=== PATIENT | male | born 1965 | race Asian ===

== ENCOUNTER 2017-03-29 08:26 | Outpatient (CLI) | payer BC ==
--- NOTE | 2017-03-29 10:24 | CT ---
CT ABDOMEN WITH AND WITHOUT IV CONTRAST CT PELVIS WITH AND WITHOUT IV CONTRAST: Date: 03-29-17 History: Right sided abdominal pain and hematuria. History of bilateral renal stones. Comparison: Noncontrast CT abdomen and pelvis, 01-23-12. FINDINGS: There are two nonobstructing right renal calculi, each of which measures approximately 4 mm. There i s an approximately 5 mm calculus seen within the mid right ureter near the level of the inferior asp ect right sacroiliac joint. There is no resultant hydroureter or hydronephrosis on the right. No lef t hydronephrosis is present. There is decreased attenuation of the liver suggesting diffuse fatty infiltration. There is bibasilar atelectasis. The spleen, pancreas, bilateral adrenal glands, and urinary bladder demonstrate a normal CT appearan ce. Minimal vascular calcifications seen in the abdominal aorta and iliac arteries. The upper abdomen including the upper portion of the kidneys is excluded from view on the arterial p hase imaging which is secondary to technical factures. However, on delayed imaging, the kidneys demo nstrate a normal CT appearance and no renal mass is visualized. The appendix is visualized and normal in caliber. No other interval change. The partially obstructing proximal right ureter calculus from 2012 is not seen. IMPRESSION: 1. Mid right ureteral calculus measuring approximately 5 mm. There is no resultant hydronephrosis or hydroureter. 2. Nonobstructing right renal calculi. 3. Fatty infiltration of the liver. POS: [facility]
[2017-03-29] MEDS ORDERED: Iopamidol 370 76% 100 ML VIAL ONE (15:50)
== END 2017-03-29 08:27 | disposition home or self-care (01) ==
LOC: CT 08:26
PROVIDERS: ATTEND Urology
DX: R31.29 Other microscopic hematuria (principal); N20.0 Calculus of kidney; N20.1 Calculus of ureter; K76.0 Fatty (change of) liver, not elsewhere classified
CPT/HCPCS: 74178

== ENCOUNTER 2017-04-12 06:00 | Day surgery (SDC) | payer BC ==
[2017-04-06 16:38] VITALS: BMI 27.6
[2017-04-12] MEDS ORDERED: Fentanyl 250 MCG/5 ML VIAL ONE (06:59)
[2017-04-12] MEDS ORDERED: Midazolam HCl 2 mg/2 ml Vial ONE ×2 (06:59→07:15)
[2017-04-12] MEDS ORDERED: Promethazine HCl 25 MG/ML VIAL ONE (06:59)
[2017-04-12] MEDS ORDERED: CEFAZOLIN 1 GM, Syringe 2.5 ML in Sterile Water 7.5 ML SLOW IVP SCH (07:15)
[2017-04-12] MEDS ORDERED: Iothalamate Meglumine 60% 50 ML VIAL FS ONE (07:17)
[2017-04-12] MEDS ORDERED: Propofol 200 MG/20 ML VIAL ONE ×2 (07:38→08:22)
[2017-04-12] MEDS ORDERED: PHENYLEPHRINE-NS 100 MCG/ML 10 ML SYRINGE ONE ×2 (07:38→08:22)
[2017-04-12] MEDS ORDERED: Ondansetron HCl/PF 4 MG/2 ML Vial ONE (07:38)
[2017-04-12] MEDS ORDERED: Dexamethasone 20 MG/5 ML VIAL ONE (08:22)
[2017-04-12] MEDS ORDERED: Glycopyrrolate 0.2 MG/ML 5 ML SYRINGE ONE (08:22)
[2017-04-12] MEDS ORDERED: Furosemide 20 MG/2 ML VIAL ONE (08:57)
--- NOTE | 2017-04-12 09:18 | RAD ---
KUB: Date: 04-12-17 Comparison: 10-29-14 History: Pre-operative patient, history of renal stone disease. FINDINGS: Multiple punctate calcifications are seen in the right upper quadrant, overlying the region of the r ight renal shadow near the 12th rib. These punctate calcifications measure up to 3 mm and are slight ly obscured by stool within the adjacent colon. There are at least two such stones suspected. There is a calcification just lateral to the right L2 transverse process which correlates with a vas cular calcification on the 03-29-17 CT exam. The 03-29-17 CT exam demonstrated a 4 mm calcification along the course of the distal right ureter, difficult to visualized on radiograph secondary to overlying the sacrum. There may be a correlate on this KUB overlying the inferior aspect of the right sacral ala measuring up to 3 mm in craniocaudal dimension. This determination could be made with repeat CT or retrograde pyelogram. IMPRESSION: Calcifications in the right upper quadrant suggest punctate intrarenal stones. There is a faint calc ification along the inferior aspect of the right sacroiliac joint overlying the sacrum which may rep resent a small stone within the distal right ureter. POS: [facility]
[2017-04-12] MEDS ORDERED: Phenazopyridine HCl 97.5 MG TABLET ONE (09:48)
[2017-04-12] MEDS ORDERED: Oxybutynin 5 MG TAB ONE (09:49)
--- NOTE | 2017-04-12 14:16 | OP ---
DATE OF SERVICE: 04/12/2017 PREOPERATIVE DIAGNOSIS: Right ureteral and renal stones. POSTOPERATIVE DIAGNOSIS: Right ureteral and renal stones. PROCEDURES: Cystoscopy, right retrograde pyelogram, right ureteroscopy, holmium laser lithotripsy, stone basketing, stent placement 6 x 24 as well as right extracorporal shock wave lithotripsy. SURGEON: Tiffanie Quinonez MD ANESTHESIA: General with ET tube. FINDINGS: Adequate fragmentation and removal of the ureteral stone and adequate fragmentation of 2 renal stones. SPECIMEN: Stone. COMPLICATIONS: None. BLOOD LOSS: None. DRAINS: Remaining with internal double-J 6 x 24 with a string. INDICATIONS: The patient is a 52-year-old male who was seen in the office after having a bout of re nal colic and noted to have a persistent mid right ureteral stone as well as 2 others in the right k idney, so he is set up for definitive stone therapy. TECHNIQUE: The patient was brought to the room by Anesthesia, lying on the table in supine position . After receiving general anesthetic, his legs were placed in lithotomy position and his perineum w as prepped and draped in sterile fashion. Using a 22-Turkish cystoscope and a 30 degree lens, the ur ethra was traversed and the bladder inspected. The prostate was slightly oozy, but otherwise there were no abnormalities noted. The right ureteral orifice was intubated with a Pollack catheter and a retrograde pyelogram was attempted, but I needed the wire in order to intubate the UO successfully, so this was advanced beyond the stone and up into the renal pelvis as well as the Pollack catheter over the wire. Then, the wire was removed. There was no hydronephrotic drip. There was no hydrone phrosis and there was minimal to no specimen of urine collected. So at this point, measurements wer e taken for a 6 x 24 which would be used at the end of the case, then the wire was replaced and the ureteral orifice was dilated with 12 Turkish 6 cm to a maximum pressure of 12 mmHg and this was taken down and removed. Then, a rigid ureteroscope was used to go up to the level of the stone and laser fiber with holmium was used to fragment the stone into 3 main pieces which were extracted and small er pieces which were also extracted and dropped into the bladder and rinsed out. On the last pass, there were no further fragments of concern. So, the ureteroscope was removed and the cystoscope vilma k fed over the wire and a 6 x 24 double-J was placed with a coil extended somewhat on the lower pole because the renal pelvis had no significant distention. So, I opted to leave this. There was a go od coil visualized in the bladder itself. The scope was broken apart and bladder was drained carefu lly and removed leaving the string intact, which was then secured to the patient's penis. The patie nt tolerated procedure well and was then transferred to a second suite where ESWL would be performed . The patient was laid supine and an ESWL machine was brought up to his right side where a total of 25 00 shocks at a maximum power of 4 out of 6 at a maximum rate of 90 per minute were then delivered eq isma distributing between approximately 1250 shocks to the right 5 mm mid pole and the right upper 5 mm stone. Good fragmentation was noted. The patient tolerated the procedure well and then was aw akened and transferred to PACU in stable condition.
[2017-04-15 15:22] LABS: CA Oxalate Dihydrate 10 % (.); CA Oxalate Monohydrate 87 % (.); Color Brown (.)
== END 2017-04-12 11:55 | disposition home or self-care (01) ==
LOC: SDC 06:00
PROVIDERS: ATTEND Urology
PROC: 0T768DZ Dilation of Right Ureter with Intraluminal Device, Via Natural or Artificial Opening Endoscopic (ICD-10-PCS; principal; 2017-04-12)
PROC: 0TF3XZZ Fragmentation in Right Kidney Pelvis, External Approach (ICD-10-PCS; principal; 2017-04-12)
PROC: 0TF38ZZ Fragmentation in Right Kidney Pelvis, Via Natural or Artificial Opening Endoscopic (ICD-10-PCS; principal; 2017-04-12)
DX: N20.2 Calculus of kidney with calculus of ureter (principal)
CPT/HCPCS: 74000; 76000; 82365; 88300; A4216; C1758; J0131; J0690; J1100; J1940; J2250; J2405; J2550; J2704; J3010; Q9961

== ENCOUNTER 2017-04-28 12:20 | Outpatient (CLI) | payer OTHER | END 2017-04-28 12:21 | disposition home or self-care (01) | LOC: DTY/OP 12:20 | PROVIDERS: ATTEND Family Medicine | DX: E11.9 Type 2 diabetes mellitus without complications (principal) | CPT/HCPCS: 97802 ==

== ENCOUNTER 2017-05-11 12:38 | Outpatient (CLI) | payer BC ==
--- NOTE | 2017-05-11 12:56 | RAD ---
KUB: Indication: Renal stone. Comparison: 04-12-17, CT of the abdomen and pelvis, 03-29-17. FINDINGS: Multiple stones overlying the right renal collecting system are similar appearing. The small calcific ations seen overlying the right sacral ala is no longer present and may reflect a passed stone. Artif act slightly limits evaluation of the lower pelvis. Bowel gas pattern is nonobstructed. No acute osse ous abnormality is evident. IMPRESSION: Stable right nephrolithiasis. POS: [facility]
== END 2017-05-11 12:39 | disposition home or self-care (01) ==
LOC: RAD 12:38
PROVIDERS: ATTEND Urology
DX: N20.0 Calculus of kidney (principal)
CPT/HCPCS: 74000

== ENCOUNTER 2018-05-16 12:41 | Outpatient (CLI) | payer BC ==
--- NOTE | 2018-05-16 14:33 | RAD ---
ABDOMEN 1 VIEW: Date: 05/16/18 HISTORY: Other abnormal findings in urine; history of stones. COMPARISON: Radiograph dated 05/11/17. FINDINGS: The right-sided renal calculus measures approximately 7.0 mm, similar to slightly increased in size f rom the comparison examination. No abnormal calcifications are seen projecting over the left renal sh adow. Small acetabular osteophytes bilaterally. Small phleboliths in the pelvis. IMPRESSION: Similar right-sided nephrolithiasis. POS: [facility]
== END 2018-05-16 12:42 | disposition home or self-care (01) ==
LOC: RAD 12:41
PROVIDERS: ATTEND Urology
DX: R82.998 Other abnormal findings in urine (principal); N20.0 Calculus of kidney
CPT/HCPCS: 74018

== ENCOUNTER 2024-03-07 10:09 | Outpatient (CLI) | payer BC | END 2024-03-07 10:10 | disposition home or self-care (01) | LOC: BICRAD 10:09 | PROVIDERS: ATTEND Family Medicine | DX: R05.3 Chronic cough (principal) | CPT/HCPCS: 71046 ==

== ENCOUNTER 2024-06-12 10:32 | Outpatient (CLI) | payer BC | END 2024-06-12 10:33 | disposition home or self-care (01) | LOC: BICCT 10:32 | PROVIDERS: ATTEND Internal Medicine Gastroenterology | DX: R63.4 Abnormal weight loss (principal); R10.9 Unspecified abdominal pain; N20.0 Calculus of kidney; N28.89 Other specified disorders of kidney and ureter; K76.89 Other specified diseases of liver; N28.1 Cyst of kidney, acquired | CPT/HCPCS: 36415; 74177; 82565 ==

== ENCOUNTER 2024-07-09 08:06 | Outpatient (CLI) | payer BC | END 2024-07-09 08:07 | disposition home or self-care (01) | LOC: NM 08:06 | PROVIDERS: ATTEND Internal Medicine Gastroenterology | DX: R11.0 Nausea (principal); R68.81 Early satiety; R63.4 Abnormal weight loss | CPT/HCPCS: 78264; A9541 ==